=== PATIENT | female | born 1970 ===

== ENCOUNTER 2018-10-24 05:58 | Day surgery (SDC) | payer OTHER ==
[~2018-10-24 05:58] MED LIST: TOPROL PO
== END 2018-10-24 10:15 | disposition home or self-care (01) ==
LOC: CIR.AMB 05:58
DX: H65.492 Other chronic nonsuppurative otitis media, left ear (principal)

== ENCOUNTER 2022-10-03 21:17 | Emergency (ER) | payer OTHER ==
[~2022-10-03] VITALS: Ht 147.3 cm; Wt 54.4 kg
[2022-10-03] MEDS ORDERED: CIPRO500 MG PO (23:11)
[2022-10-03] MEDS ORDERED: PRILOSEC OTC20 MG PO (23:11)
[2022-10-03] MEDS ORDERED: LEVSIN/SL0.125 MG SL (23:11)
[2022-10-03] MEDS ORDERED: METRONIDAZOLE500 MG PO (23:11)
== END 2022-10-03 23:22 | disposition home or self-care (01) ==
LOC: ER 21:17
DX: K57.32 Diverticulitis of large intestine without perforation or abscess without bleeding (principal)